=== PATIENT | female | born 1970 | race Caucasian/White ===

== ENCOUNTER 2016-05-24 10:45 | Emergency (ER) | payer OTHER | END 2016-05-24 14:00 | disposition home or self-care (01) | LOC: FER 10:45 | DX: S53.401A Unspecified sprain of right elbow, initial encounter (principal); S16.1XXA Strain of muscle, fascia and tendon at neck level, initial encounter; M25.552 Pain in left hip; M06.9 Rheumatoid arthritis, unspecified; Z88.2 Allergy status to sulfonamides; Z91.040 Latex allergy status; W01.0XXA Fall on same level from slipping, tripping and stumbling without subsequent striking against object, initial encounter; Y92.009 Unspecified place in unspecified non-institutional (private) residence as the place of occurrence of the external cause | CPT/HCPCS: 72050; 72072; 72110; 73080; 73090; 73502; J1170 ==

== ENCOUNTER 2016-06-17 14:16 | Emergency (ER) | payer OTHER | END 2016-06-17 16:30 | disposition home or self-care (01) | LOC: FER 14:16 | DX: J02.0 Streptococcal pharyngitis (principal); F41.9 Anxiety disorder, unspecified; M06.9 Rheumatoid arthritis, unspecified; G89.29 Other chronic pain; F17.210 Nicotine dependence, cigarettes, uncomplicated; Z88.2 Allergy status to sulfonamides; Z91.040 Latex allergy status; Z79.899 Other long term (current) drug therapy | CPT/HCPCS: 87450; 87804; 87899; 94640; J0561; J1885 ==

== ENCOUNTER 2020-09-08 06:25 | Emergency (ER) | payer MEDICARE, OTHER ==
[~2020-09-08 06:25] MED LIST: ABILIFY10 MG PO; ADVAIR 500-501 EACH INH; ARAVA10 MG PO; AZITHROMYCIN250 MG PO; BUPROPION XL150 MG PO; CEFDINIR300 MG PO; CETIRIZINE HCL10 MG PO; CHANTIX1 MG PO; DICLOFENAC SODI75 MG PO; DULERA 200 MCG8.8 GM INH; DUONEB 2.5-0.5M1 AMP INH; DUONEB 2.5-0.5M1 AMP NEB; GABAPENTIN800 MG PO; HABITROL14 MG TD; HUMIRA40 MG/0.1 IM; K-DUR20 MEQ PO; LASIX20 MG PO; LEVAQUIN750 MG PO; LIPITOR20 MG PO; MINIPRES1 MG PO; MINIPRESS1 MG PO; MUCINEX 600MG600 MG PO; NEBULIZER UNIT NEB; PAXIL40 MG PO; PHENERGAN25 M1 PO; PREDNISONE 10MG10 MG PO; PREDNISONE 20MG20 MG PO; PREDNISONE20 MG PO; PREDNISONE5 MG PO; PREDNISONE50 MG PO; PRINIVIL20 MG PO; PROTONIX 40MG T40 MG PO; SINGULAIR10 MG PO; TESSALON PERLE100 MG PO; VENTOLIN HFA IN18 GM INH; VIBRAMYCIN100 MG PO; VITAMIN B122500 MCG PO; XANAX0.5 MG PO; XANAX1 MG PO; ZESTRIL40 MG PO; ZITHROMAX500 MG PO; ZYVOX600 MG PO
[2020-09-08 07:31] LABS: BASOPHIL 0.8 % (0-2); HCT 44.5 % (37.0-47.0); HGB 14.4 g/dl (12.5-16.0); LYMPHOCYTE 29.6 % (15-48); MCH 32.7 pg (25.0-31.0); MCHC 32.4 g/dL (32.0-36.0); MCV 101.1 fL (78.0-100.0); MONOCYTE 8.4 % (0-12); MPV 11.8 fL (6.0-9.5); NEUTROPHIL 58.5 % (41-80); NRBC 0; PLT 241 K/uL (150-400); RDW 13.3 % (11.5-14.0)
[2020-09-08 07:36] LABS: INR 1.02 (0.9-1.2); PROTHROMBIN TIME 12.7 SECONDS (11.4-13.6); PTT 29.3 SECONDS (22.2-34.7)
[2020-09-08 07:40] LABS: ALBUMIN 3.4 g/dL (3.4-5.0); BILIRUBIN - TOTAL 0.2 mg/dL (0.2-1.0); BUN/CREAT RATIO (CALC) 14.7 RATIO; CREATININE 0.68 mg/dL (0.51-0.95); GLOBULIN (CALCULATION) 3.4 g/dL; POTASSIUM 4.4 mmol/L (3.5-5.1); TOTAL PROTEIN 6.8 g/dL (6.4-8.2)
[2020-09-08] MEDS ORDERED: PREDNISONE20 MG PO (10:22)
[2020-09-08] MEDS ORDERED: VIBRAMYCIN100 MG PO (10:22)
[2020-09-08] MEDS ORDERED: CEFDINIR300 MG PO (10:46)
== END 2020-09-08 10:55 | disposition home or self-care (01) ==
LOC: FER 06:25
PROVIDERS: Emergency Medicine
DX: J44.1 Chronic obstructive pulmonary disease with (acute) exacerbation (principal); R07.89 Other chest pain; I50.9 Heart failure, unspecified; F17.210 Nicotine dependence, cigarettes, uncomplicated; Z95.9 Presence of cardiac and vascular implant and graft, unspecified; Z20.822 Contact with and (suspected) exposure to COVID-19
CPT/HCPCS: 36415; 36600; 71045; 80053; 82803; 83605; 83880; 84484; 85025; 85610; 85730; 87040; 93005; J2270; J2405; J7030; U0002

== ENCOUNTER 2021-10-07 12:40 | Inpatient (IN) | payer MEDICARE, OTHER ==
[~2021-10-07] VITALS: Ht 167.6 cm; Wt 133.0 kg
[~2021-10-07 12:40] MED LIST changes: +CIPRO500 MG PO; +METRONIDAZOLE500 MG PO
[2021-10-07 14:05] LABS: BASOPHIL 0.6 % (0-2); EOSINOPHIL 0.9 % (0-5); HCT 50.8 % (37.0-47.0); HGB 15.7 g/dl (12.5-16.0); MCH 31.3 pg (25.0-31.0); MCHC 30.9 g/dL (32.0-36.0); MCV 101.4 fL (78.0-100.0); MONOCYTE 8.6 % (0-12); MPV 11.7 fL (6.0-9.5); NEUTROPHIL 77.3 % (41-80); NRBC 0; PLT 209 K/uL (150-400); RBC 5.01 M/uL (4.20-5.40); RDW 13.4 % (11.5-14.0); WBC 11.4 K/uL (4.0-10.5)
[2021-10-07 14:26] LABS: CORONAVIRUS 2019 SARS-COV-2 NEGATIVE (NEGATIVE); INFLUENZA A NAA NEGATIVE (NEGATIVE)
[2021-10-07 14:47] LABS: ALBUMIN 3.4 g/dL (3.4-5.0); BILIRUBIN - TOTAL 0.3 mg/dL (0.2-1.0); BUN/CREAT RATIO (CALC) 11.3 RATIO; CREATININE 0.71 mg/dL (0.51-0.95); GLOBULIN (CALCULATION) 4.2 g/dL; POTASSIUM 4.4 mmol/L (3.5-5.1); TOTAL PROTEIN 7.6 g/dL (6.4-8.2)
[2021-10-07 14:59] LABS: BILIRUBIN NEGATIVE (NEGATIVE); BLOOD TRACE-INTACT Ery/uL (NEGATIVE); CLARITY CLEAR (CLEAR); COLOR YELLOW (YELLOW); GLUCOSE (U) NORMAL (NORMAL); LEUKOCYTES NEGATIVE Leu/uL (NEGATIVE); NITRITE NEGATIVE (NEGATIVE); PROTEIN NEGATIVE (NEGATIVE); SPECIFIC GRAVITY <=1.005 (1.001-1.030); UROBILINOGEN 0.2 mg/dL (0.2-1.0)
[2021-10-07 15:18] LABS: BACTERIA TRACE; URINARY RBC RARE; URINARY WBC RARE
[2021-10-07] MEDS ORDERED: WELLBUTRIN SR150 MG PO (21:04)
[2021-10-07] MEDS ORDERED: DUONEB 2.5-0.5M1 AMP INH (21:05)
[2021-10-07] MEDS ORDERED: MELATONIN5 M2 PO (21:06)
[2021-10-08 06:21] LABS: HGB 13.7 g/dl (12.5-16.0); MCH 31.4 pg (25.0-31.0); MCHC 31.1 g/dL (32.0-36.0); MCV 100.7 fL (78.0-100.0); MPV 11.5 fL (6.0-9.5); RBC 4.37 M/uL (4.20-5.40); RDW 13.7 % (11.5-14.0); WBC 8.3 K/uL (4.0-10.5)
[2021-10-08 07:00] LABS: BUN/CREAT RATIO (CALC) 14.1 RATIO; CREATININE 0.64 mg/dL (0.51-0.95)
[2021-10-08] MEDS ORDERED: PREDNISONE 20MG20 MG PO (10:20)
[2021-10-08] MEDS ORDERED: ZITHROMAX500 MG PO (10:20)
== END 2021-10-08 11:03 | disposition home or self-care (01) | DRG 871 ==
LOC: FER 12:40 → FMS 18:35
PROVIDERS: Nurse Practitioner Acute Care; Physician Assistant; ADMIT Internal Medicine
DX: A41.9 Sepsis, unspecified organism (principal); J96.01 Acute respiratory failure with hypoxia; J44.1 Chronic obstructive pulmonary disease with (acute) exacerbation; Z68.42 Body mass index [BMI] 45.0-49.9, adult; I50.32 Chronic diastolic (congestive) heart failure; J98.11 Atelectasis; R65.20 Severe sepsis without septic shock; E66.01 Morbid (severe) obesity due to excess calories; E78.5 Hyperlipidemia, unspecified; I25.10 Atherosclerotic heart disease of native coronary artery without angina pectoris; G47.33 Obstructive sleep apnea (adult) (pediatric); F32.A Depression, unspecified; F17.210 Nicotine dependence, cigarettes, uncomplicated; G62.9 Polyneuropathy, unspecified; R82.71 Bacteriuria; F41.9 Anxiety disorder, unspecified; I25.2 Old myocardial infarction; Z90.49 Acquired absence of other specified parts of digestive tract; Z90.710 Acquired absence of both cervix and uterus; Z99.81 Dependence on supplemental oxygen; Z82.5 Family history of asthma and other chronic lower respiratory diseases; Z79.899 Other long term (current) drug therapy; Z88.1 Allergy status to other antibiotic agents; Z88.2 Allergy status to sulfonamides; Z91.040 Latex allergy status; Z87.01 Personal history of pneumonia (recurrent); Z98.84 Bariatric surgery status
CPT/HCPCS: 36415; 36600; 71045; 71275; 80048; 80053; 81001; 82803; 83605; 83880; 84145; 84439; 84443; 84484; 85025; 85379; 86140; 87040; 87070; 87205; 93005; 94010; 94640; 94660; 94760; J0692; J1650; J2543; J2930; J3370; J3475; J7040; J7050; Q9967; U0002